=== PATIENT | male | born 2000 | race Two or more races ===

== ENCOUNTER 2024-06-20 13:07 | Emergency (ER) | payer OTHER ==
[~2024-06-20] VITALS: Ht 188 cm; Wt 81.4 kg
[2024-06-20 13:48] VITALS: BP 122/85; PULSE 101; RESP 16; TEMP 98.5; O2SAT 97
[2024-06-20] MEDS: HYDROcodone-ACET 5/325MG TAB PO ONE (16:28)
[2024-06-20] MEDS: cefTRIAXone SOD 1,000 MG VL IM ONE (16:29)
[2024-06-20 16:42] LABS: Basophils # (auto) 0 10 ^3/uL (0-0.2); Basophils % (auto) 0.1 % (0.0-2.0); Eosinophils # (auto) 0 10 ^3/uL (0-0.8); Eosinophils % (auto) 0.2 % (0.0-7.0); Hematocrit 45.1 % (41.0-53.0); Hemoglobin 15.2 g/dL (13.5-17.5); Lymphocytes # (auto) 0.8 10 ^3/uL (0.4-5.4); Lymphocytes % (auto) 7.3 % (10.0-50.0); Mean Corpuscular Hemoglobin 31.2 pg (28.0-32.0); Mean Corpuscular Hgb Conc. 33.8 g/dL (32.0-36.0); Mean Corpuscular Volume 92.4 fL (80.0-100.0); Monocytes # (auto) 0.5 10 ^3/uL (0-1.3); Monocytes % (auto) 4.2 % (0.0-12.0); Neutrophils # (auto) 9.5 10 ^3/uL (1.6-8.6); Neutrophils % (auto) 88.2 % (37.0-80.0); Nucleated Red Blood Cells % 0.1 %; Platelet Count (auto) 167 10^3/uL (140-450); Red Blood Cells 4.88 10^6/uL (4.5-5.90); Red Cell Distribution Width 13.3 % (11.8-14.3); White Blood Cell 10.8 10^3/uL (4.4-10.8)
[2024-06-20 16:49] LABS: Chloride 107 mmol/L (98-107); Potassium 4.3 mmol/L (3.5-5.1); Sodium 141 mmol/L (136-145)
[2024-06-20 16:51] LABS: Anion Gap 7 (5-15); Calcium 10.5 mg/dL (8.7-10.4); Carbon Dioxide 27 mmol/L (20-31)
[2024-06-20 16:56] LABS: BUN/Creatinine Ratio 11.6 (10.0-20.0); Blood Urea Nitrogen 10 mg/dL (9-23); Glucose 90 mg/dL (74-106)
[2024-06-20] MEDS ORDERED: IBUP-1454 PO (17:22)
[2024-06-20] MEDS ORDERED: CIPR-173 PO (17:22)
== END 2024-06-20 17:29 | disposition home or self-care (01) ==
LOC: ER 13:07
DX: S61.211A Laceration without foreign body of left index finger without damage to nail, initial encounter (principal); Z79.1 Long term (current) use of non-steroidal anti-inflammatories (NSAID); Z79.899 Other long term (current) drug therapy; W23.0XXA Caught, crushed, jammed, or pinched between moving objects, initial encounter; Y93.89 Activity, other specified; Y92.89 Other specified places as the place of occurrence of the external cause; Y99.0 Civilian activity done for income or pay
CPT/HCPCS: 12001; 36415; 73130; 73200; 80048; 85025; 96372; 99285; J0696

== ENCOUNTER 2024-06-27 15:52 | Emergency (ER) | payer OTHER ==
[~2024-06-27 15:52] MED LIST: CIPR-173 PO; IBUP-1454 PO
== END 2024-06-27 16:58 | disposition left against medical advice (07) ==
LOC: ER 15:52
DX: Z00.00 Encounter for general adult medical examination without abnormal findings (principal); Z53.21 Procedure and treatment not carried out due to patient leaving prior to being seen by health care provider